=== PATIENT | male | born 1965 | race Caucasian/White ===

== ENCOUNTER 2016-06-29 16:15 | Emergency (ER) | payer OTHER ==
[~2016-06-29] VITALS: Ht 177.8 cm; Wt 200.0 kg
[2016-06-29 16:17] VITALS: BP 152/105; PULSE 105; RESP 20; O2SAT 96
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
== END 2016-06-29 18:12 | disposition home or self-care (01) ==
LOC: SED 16:23
DX: S00.83XA Contusion of other part of head, initial encounter (principal); Y04.0XXA Assault by unarmed brawl or fight, initial encounter; Y92.149 Unspecified place in prison as the place of occurrence of the external cause; Y93.89 Activity, other specified; Y99.8 Other external cause status; R51 Headache; R68.84 Jaw pain

== ENCOUNTER 2016-12-03 20:18 | Emergency (ER) | payer OTHER | END 2016-12-03 20:52 | disposition left against medical advice (07) | LOC: SED 20:18 | DX: R07.89 Other chest pain (principal); Z53.21 Procedure and treatment not carried out due to patient leaving prior to being seen by health care provider ==